=== PATIENT | male | born 1960 | race Two or more races ===

== ENCOUNTER 2022-03-17 12:32 | Emergency (ER) | payer MEDICAID, OTHER ==
[2022-03-17 14:41] LABS: CHLORIDE,CL 104 mmol/L (98-107); SODIUM,NA 140 mmol/L (136-148)
[2022-03-17 15:00] LABS: ACETAMINOPHEN <2.0 ug/mL; BLOOD UREA NITROGEN,BUN 17 mg/dL (7.0-18.0); CARBON DIOXIDE,CO2 28.7 mmol/L (21.0-32.0); GLUCOSE RANDOM 104 mg/dL (74-106)
[2022-03-17] MEDS ORDERED: Water For Injection, Sterile 20 ML SDV INJECT ONE (16:12)
[2022-03-17] MEDS ORDERED: Ziprasidone Mesylate 20 MG Vial IM ONE (16:12)
== END 2022-03-17 17:53 ==
LOC: MW.ED 12:32
DX: R45.851 Suicidal ideations (principal); I10 Essential (primary) hypertension; F41.9 Anxiety disorder, unspecified; F32.A Depression, unspecified; Z20.822 Contact with and (suspected) exposure to COVID-19; Z79.899 Other long term (current) drug therapy
CPT/HCPCS: 36415; 70450; 70450-26; 80053; 80143; 80179; 80305-QW; 80307; 81003; 83735; 84443; 84481; 85025; 93005; 93010; 99285; 99285-25; U0002